=== PATIENT | female | born 1975 | race Hispanic/Latino ===

== ENCOUNTER 2018-08-13 16:01 | Emergency (ER) | payer BC ==
[2018-08-13] MEDS ORDERED: KETOROLAC TROMETHAMINE 60 MG/2 ML VIAL ONE (16:26)
[2018-08-13] MEDS ORDERED: HYDROCODONE/ACETAMINOPHEN 10/325 MG TAB ONE (16:26)
[2018-08-13] MEDS ORDERED: DEXAMETHASONE SOD PHOSPHATE 10MG/ML 1ML VIAL ONE (16:26)
== END 2018-08-13 17:25 | disposition home or self-care (01) ==
LOC: EDH 16:01
DX: M54.5 Low back pain (principal); E11.9 Type 2 diabetes mellitus without complications
CPT/HCPCS: 96372 ×2; 99284; J1100; J1885

== ENCOUNTER 2018-08-15 09:26 | Emergency (ER) | payer BC ==
[2018-08-15 09:58] LABS: APPEARANCE,URINE CLEAR (CLEAR); BILIRUBIN,URINE NEGATIVE (NEGATIVE); COLOR,URINE YELLOW (YELLOW); GLUCOSE, URINE (UA) 250 mg/dL (NEGATIVE); KETONES,URINE 15 mg/dL (NEGATIVE); LEUKOCYTE ESTERASE ,URINE NEGATIVE (NEGATIVE); NITRATE,URINE NEGATIVE (NEGATIVE); OCCULT BLOOD,URINE NEGATIVE (NEGATIVE); PH,URINE 5.5 (5.0-8.0); PROTEIN,URINE NEGATIVE (NEGATIVE); UROBILINOGEN,URINE 0.2 mg/dL (0.2-1.0)
[2018-08-15] MEDS ORDERED: KETOROLAC TROMETHAMINE 30MG/ML ONE (10:17)
[2018-08-15] MEDS ORDERED: ORPHENADRINE CITRATE 30 MG/ML ML ONE ×2 (10:17→10:18)
[2018-08-15 10:20] LABS: BACTERIA,URINE Few /HPF (None Seen); SQUAMOUS EPITHELIAL CELL,UR Rare /HPF (0-2); WBC,URINE 0-1 /HPF (0-1); YEAST,URINE BUDDING Few /HPF (None Seen)
== END 2018-08-15 13:08 | disposition home or self-care (01) ==
LOC: EDH 09:26
DX: M54.42 Lumbago with sciatica, left side (principal); E11.9 Type 2 diabetes mellitus without complications
CPT/HCPCS: 72131; 81001; 81025; 96374; 96375; 99285; J1885; J2360 ×2